=== PATIENT | male | born 1995 | race Caucasian/White ===

== ENCOUNTER 2019-11-07 11:41 | Emergency (ER) | payer SELFPAY | END 2019-11-07 16:00 | disposition home or self-care (01) | PROVIDERS: Emergency Provider Physician Assistant; Family Provider Physician Assistant Medical; Visit Provider Physician Assistant | DX: G44.1 Vascular headache, not elsewhere classified (principal); F17.210 Nicotine dependence, cigarettes, uncomplicated ==

== ENCOUNTER 2020-10-15 14:15 | Outpatient (CLI) | payer SELFPAY ==
--- NOTE | 2020-10-15 14:35 | XRR_ITS ---
PROCEDURE INFORMATION: Exam: XR Lumbosacral Spine, 2 or 3 Views Exam date and time: 10/15/2020 2:55 PM Age: 25 years old Clinical indication: Injury or trauma; Other: Moving a large rock; Blunt trauma (contusions or hematomas); Injury date: 10/10/20; Patient HX: C/O low back pain x 5 days after trying to move a large rock. TECHNIQUE: Imaging protocol: XR of the lumbosacral spine, 2 or 3 views. COMPARISON: No relevant prior studies available. FINDINGS: Bones/joints: There is mild scoliosis concave to the right. Intervertebral disc spaces are preserved. No fracture is identified. Soft tissues: Unremarkable. XR/XR lumbar spine 2-3V* [id number] IMPRESSION: Mild scoliosis. No fracture is identified.
== END 2020-10-15 14:16 | disposition home or self-care (01) ==
PROVIDERS: Visit Provider Emergency Medicine
DX: M41.86 Other forms of scoliosis, lumbar region (principal)
CPT/HCPCS: 72100

== ENCOUNTER 2021-02-22 01:43 | Emergency (ER) | payer SELFPAY ==
[2021-02-22 01:48] VITALS: BP 127/86; PULSE 104; RESP 16; TEMP 36.7; O2SAT 97; BMI 19.9
--- NOTE | 2021-02-22 01:57 | W.ED.OVERDOS ---
HPI - Overdose General: Chief Complaint: Overdose Stated Complaint: confusion Time Seen by Provider: 02/22/21 01:46 Source: patient, EMS and police Mode of arrival: EMS Limitations: no limitations History of Present Illness: HPI Narrative: 25-year-old male states that roughly 11:00 he took a lot of shrooms. He states that he was feeling overwhelmed and went, please officer and wanted to come to the hospital. He states to me that he is feeling extremely paranoid and thinks he took too many streams. He denies any suicidal homicidal thoughts. Patient has been cooperative here and not agitated at this time. He denies any worsening improving factors. He does have flight of ideas and is under the influence. Review of Systems Const: Denies: fever(s), chills, body aches or change in appetite Eyes: Denies: blurry vision or eye discomfort ENMT: Denies: throat pain or dental pain Card: Denies: chest pain Resp: Denies: dyspnea GI: Denies: abdominal pain, nausea, vomiting or diarrhea : Denies: dysuria Musc: Denies: neck pain or back pain Skin/Breast: Denies: rash Neuro: Denies: headache(s) Psych: Reports: difficulty concentrating; Denies: depression Mekhi/Lymph: Denies: easy bruising All/Imm: Denies: urticaria [facility] ED PFSH: Social History (Updated 10/09/20 @ 16:15 by Radha Cho LPN) Smoking and tobacco status: current every day smoker Physical Exam Const: COMMON NORMALS: no acute distress, patient oriented x3 and healthy appearing HENMT: COMMON NORMALS: normocephalic and atraumatic HEAD & SCALP: normocephalic and atraumatic Eye: COMMON NORMALS: Equal, round and reactive pupils present and EOMs intact bilaterally PUPIL: Yes Equal, round and reactive pupils present Neck/C-Spine: COMMON NORMALS: full ROM and supple Chest: COMMONS NORMALS: normal inspection of the chest and normal palpation of entire chest wall Resp: COMMON NORMALS: normal respiratory effort, No retractions, No use of accessory muscles and clear to auscultation bilaterally AUSCULTATION: clear to auscultation bilaterally Cardio: COMMON NORMALS: regular rate, regular rhythm and No murmurs present (Cardio) RATE: regular rate RHYTHM: regular rhythm GI: COMMON NORMALS: Normal to inspection, nondistended, normoactive bowel sounds present, Soft to palpation, non-tender and no masses PALPATION: Yes Soft to palpation Extremity: COMMON NORMALS: normal to inspection and full ROM Neuro: COMMON NORMALS: patient oriented x3, moves all extremities and no focal motor deficits Psych: COMMON NORMALS: mental status grossly normal and cooperative ATTITUDE: Yes bizarre ACTIVITY/MOTOR BEHAVIOR: Yes fidgeting MOOD & AFFECT: Yes elevated mood THOUGHT PROCESS: Tangential thought process present Skin: COMMON NORMALS: no rashes or lesions noted and no wounds GENERAL SKIN EXAM: no rashes or lesions noted Course Vital Signs: Vital signs: Vital Signs Temperature 98.1 F 02/22/21 01:48 Pulse Rate 104 H 02/22/21 01:48 Respiratory Rate 16 02/22/21 01:48 Blood Pressure 127/86 02/22/21 01:48 Pulse Oximetry 97 02/22/21 01:48 MDM - Overdose MDM Narrative: Medical decision making narrative: Patient presents here with drug abuse after taking mushrooms. He had an adverse reaction to the mushrooms. Patient is now awake and alert and back to normal and ambulatory. Patient's mother came in pick patient up and he is stable for discharge. He has no psychiatric complaints. He has been stable while here. Lab Data: Labs: Lab Results 02/22/21 02/22/21 Range/Units 02:05 02:05 WBC 15.2 H (4.0-10.0) 10^3/ uL RBC 4.69 (4.1-5.3) 10^6/u L Hgb 15.1 (11.7-16.6) g/dL Hct 44.9 (42.0-52.0) % MCV 95.7 H (80-94) fL MCH 32.2 (28.0-34.0) pg MCHC 33.6 (30.0-36.0) g/dL RDW 12.3 (12.1-15.1) % Plt Count 194 (130-400) 10^3/c mm MPV 9.5 (7.4-10.4) fL Neut % (Auto) 87.9 % Lymph % (Auto) 5.7 % [place] % (Auto) 5.5 % Eos % (Auto) 0.1 % Baso % (Auto) 0.3 % Neut # (Auto) 13.32 H (1.8-7.7) 10^3/u L Lymph # (Auto) 0.9 (0.8-4.8) 10^3/u L [place] # (Auto) 0.8 (0.2-0.9) 10^3/u L Eos # (Auto) 0.0 (0.0-0.8) 10^3/u L Baso # (Auto) 0.0 (0.0-0.1) 10^3/u L Nucleated RBC % (a uto) 0 % Nucleated RBCs # 0.0 /100WBC Sodium 136 (136-145) mmol/L Potassium 4.0 (3.5-5.1) mmol/L Chloride 102 (98-107) mmol/L Carbon Dioxide 24 (22-29) mmol/L Anion Gap 14.0 (5-19) BUN 15 (6-20) mg/dL Creatinine 0.9 (0.7-1.2) mg/dL GFR Calculation 101.2 (90-130) mL/min Glucose 119 H (65-115) mg/dL Calculated Osmolal ity 284 L (285-295) mOsm/k g Calcium 8.9 (8.5-10.5) mg/dL Total Bilirubin 0.3 (0.15-1.2) mg/dL AST 28 (0-40) U/L ALT 30 (0-41) U/L Alkaline Phosphata se 63 (40-130) IU/L Total Protein 7.3 (6.6-8.7) g/dL Albumin 4.7 (3.5-5.2) g/dL Globulin 2.6 (1.3-4.6) g/dL Salicylates 1.1 L (3-10) mg/dL Acetaminophen < 5.0 L (10-30) ug/mL Ethyl Alcohol < 10 (0-10) mg/dL Discharge Plan Discharge Patient Disposition: Home Clinical Impression: Drug abuse Condition: Stable Prescriptions: No Action prednisone 20 mg tablet 40 mg PO DAILY 5 Days Qty: 10 RF: 0 Discharge Orders: Discharge ED (Routine); Ordered 02/22/21 Ordered By: Crystal Silva Discharge Diet: Advance as tolerated Discharge Activity: Resume usual activity Patient Instructions: Polysubstance Abuse (ED) Coding Level of Care Code ED Editor Managing [employer]aper for Chg Fwd Exam Comprehensive
[2021-02-22] MEDS: LORazepam 2 mg/mL INJ 1 mL 4 MG IM (01:58)
[2021-02-22 02:09] LABS: Basophils % 0.3 %; Eosinophils % 0.1 %; Hematocrit 44.9 % (42.0-52.0); Hemoglobin 15.1 g/dL (11.7-16.6); Lymphocytes # 0.9 10^3/uL (0.8-4.8); Lymphocytes % 5.7 %; Mean Corpuscular HGB Conc 33.6 g/dL (30.0-36.0); Mean Corpuscular Hemoglobin 32.2 pg (28.0-34.0); Mean Corpuscular Volume 95.7 fL (80-94); Mean Platelet Volume 9.5 fL (7.4-10.4); Monocytes # 0.8 10^3/uL (0.2-0.9); Monocytes % 5.5 %; Neutrophils # 13.32 10^3/uL (1.8-7.7); Neutrophils % 87.9 %; Nucleated Red Blood Cells % 0 %; Platelet Count 194 10^3/cmm (130-400); Red Blood Count 4.69 10^6/uL (4.1-5.3); Red Cell Distribution Width 12.3 % (12.1-15.1); White Blood Count 15.2 10^3/uL (4.0-10.0)
[2021-02-22 02:26] LABS: Alanine Aminotransferase 30 U/L (0-41); Albumin Level 4.7 g/dL (3.5-5.2); Alkaline Phosphatase 63 IU/L (40-130); Aspartate Amino Transferase 28 U/L (0-40); Blood Urea Nitrogen 15 mg/dL (6-20); Calcium 8.9 mg/dL (8.5-10.5); Carbon Dioxide 24 mmol/L (22-29); Chloride 102 mmol/L (98-107); Creatinine Clr Calc Pharmacy 116.6865; Globulin 2.6 g/dL (1.3-4.6); Glomerular Filtration Rate 101.2 mL/min (90-130); Glucose 119 mg/dL (65-115); Osmolality Calculated 284 mOsm/kg (285-295); Salicylate 1.1 mg/dL (3-10); Sodium 136 mmol/L (136-145); Total Bilirubin 0.3 mg/dL (0.15-1.2); Total Protein 7.3 g/dL (6.6-8.7)
[2021-02-22 02:35] LABS: Acetaminophen < 5.0 ug/mL (10-30); Alcohol Level < 10 mg/dL (0-10)
[2021-02-22 05:12] VITALS: PULSE 86; RESP 16; O2SAT 96
== END 2021-02-22 05:13 | disposition home or self-care (01) ==
PROVIDERS: Emergency Provider Emergency Medicine
DX: F19.10 Other psychoactive substance abuse, uncomplicated (principal); F17.210 Nicotine dependence, cigarettes, uncomplicated
CPT/HCPCS: 80053; 80307; 85025; 96372; 99283; J2060

== ENCOUNTER 2021-04-05 20:29 | Emergency (ER) | payer SELFPAY ==
[2021-04-05 20:36] VITALS: BP 121/72; PULSE 90; RESP 16; TEMP 36.8; O2SAT 98; BMI 21.1
[2021-04-05] MEDS: lidocaine 1% INJ 20 mL INTRADERMA (20:48)
[2021-04-05 21:05] LABS: Basophils % 0.5 %; Eosinophils # 0.3 10^3/uL (0.0-0.8); Eosinophils % 4.1 %; Hemoglobin 15.1 g/dL (11.7-16.6); Lymphocytes # 2.6 10^3/uL (0.8-4.8); Lymphocytes % 32.6 %; Mean Corpuscular HGB Conc 34.3 g/dL (30.0-36.0); Mean Corpuscular Hemoglobin 32.2 pg (28.0-34.0); Mean Corpuscular Volume 93.8 fL (80-94); Mean Platelet Volume 9.4 fL (7.4-10.4); Monocytes # 0.8 10^3/uL (0.2-0.9); Neutrophils # 4.25 10^3/uL (1.8-7.7); Neutrophils % 52.6 %; Nucleated Red Blood Cells % 0 %; Platelet Count 212 10^3/cmm (130-400); Red Blood Count 4.69 10^6/uL (4.1-5.3); Red Cell Distribution Width 12.1 % (12.1-15.1); White Blood Count 8.1 10^3/uL (4.0-10.0)
[2021-04-05] MEDS: vancomycin 1,000 MG in sodium chloride 0.9% 250 ML 250 MG IV (21:16)
[2021-04-05 21:17] LABS: Alanine Aminotransferase 12 U/L (0-41); Albumin Level 4.4 g/dL (3.5-5.2); Alkaline Phosphatase 74 IU/L (40-130); Anion Gap 16.1 (5-19); Aspartate Amino Transferase 21 U/L (0-40); Blood Urea Nitrogen 15 mg/dL (6-20); Calcium 8.9 mg/dL (8.5-10.5); Carbon Dioxide 25 mmol/L (22-29); Chloride 100 mmol/L (98-107); Globulin 2.7 g/dL (1.3-4.6); Glomerular Filtration Rate 89.6 mL/min (90-130); Glucose 89 mg/dL (65-115); Osmolality Calculated 284 mOsm/kg (285-295); Potassium 4.1 mmol/L (3.5-5.1); Sodium 137 mmol/L (136-145); Total Bilirubin 0.3 mg/dL (0.15-1.2); Total Protein 7.1 g/dL (6.6-8.7)
[2021-04-05 21:18] VITALS: BP 121/72; PULSE 78; RESP 16; O2SAT 97
[2021-04-05 21:18] LABS: Lactate (Lactic Acid level) 0.7 mmol/L (0.5-2.2)
--- NOTE | 2021-04-05 22:00 | PC.NURSE ---
patient c/o itchy to chest and back, rash noted to chest and back, denied any trouble breathing. no acute distress noted. provider notified. iv fluid stopped per
[2021-04-05 22:09] VITALS: BP 115/64; PULSE 79; RESP 16; O2SAT 98
[2021-04-05] MEDS: diphenhydrAMINE 50 mg/mL SDV 1mL IVP (22:11)
[2021-04-05] MEDS: clindamycin 150 mg Capsule 300 MG PO (22:32)
[2021-04-05 23:02] VITALS: BP 115/64; PULSE 88; RESP 16; O2SAT 96
--- NOTE | 2021-04-05 23:30 | W.ED.SKABFB ---
HPI - Skin/Abscess/Foreign Bdy General: Chief complaint: Skin/Abscess/Foreign Body Stated complaint: poss infection upper r arm Time Seen by Provider: 04/05/21 20:35 Source: patient Mode of arrival: ambulatory Limitations: no limitations History of Present Illness: HPI narrative: Pt presents with an open draining abscess to left forearm. Pt states he was placed on bactrim 2 days ago but it has come to a head and open and draining currently. Pt denies any fever but states he feels nauseated. Pt states he has been putting warm compresses on arm to bring it to a head. MD complaint: rash Onset (ago): day(s) (4) Associated symptoms: Reports nausea; Deny chills, fever(s) or vomiting Review of Systems Const: Denies: fever(s), chills, body aches, change in appetite, change in weight, fatigue, malaise or diaphoresis Eyes: Denies: change in vision, blurry vision, blind spots, photophobia, eye discomfort, eye discharge, eye redness, floaters or seeing flashes ENMT: Denies: throat pain, uvular edema, enlarged tonsils, odynophagia, hoarseness, mouth pain, swelling of lips/tongue, oral sores, bleeding gums, dental pain, dry mouth, ear or mastoid pain, ear discharge, change in hearing, tinnitus, disequilibrium, nasal discharge, nasal congestion, post nasal drip or sinus pain Card: Denies: chest pain, palpitations, irregular heart rhythm, edema, swelling of feet/ankles, lightheadedness, syncope, pre-syncope, dyspnea on exertion, orthopnea, leg pain with exertion or acrocyanosis Resp: Denies: dyspnea, productive cough, non-productive cough, wheezing, stridor, pain on inspiration, change in phlegm color, hemoptysis or chest congestion GI: Reports: nausea; Denies: abdominal pain, vomiting, hematemesis, dysphagia, diarrhea, constipation, GI cramping, change in bowel habits or rectal pain : Denies: flank pain, dysuria, urinary frequency, urinary urgency, urinary hesitancy or hematuria Musc: Denies: neck pain, back pain, extremity pain, extremity swelling, joint pain, joint swelling, joint redness, joint warmth or deformity Skin/Breast: Reports: rash; Denies: pruritus, erythema, sores, new lesions, changes in skin color or dry skin Neuro: Denies: headache(s), numbness in extremities, weakness in extremities, sensory changes, lack of coordination, difficulty walking, frequent falls, dizziness, vertigo, confusion, behavioral changes, Slurred speech present, difficulty communicating thoughts or seizure-like activity Psych: Denies: anxiety, depression, suicidal ideation or homicidal ideation Endo: Denies: polyuria, polydipsia, tired all the time, cold intolerance, excessive sweating, flushing, hot flashes or heat intolerance Mekhi/Lymph: Denies: easy bruising, easy bleeding, petechiae, purpura, enlarged lymph nodes or tender lymph nodes All/Imm: Denies: urticaria, throat swelling, tongue swelling, facial swelling, acute wheezing or itchy eyes PFSH ED PFSH: Social History (Updated 04/04/21 @ 15:00 by Khanh Gonzalez LPN) Smoking and tobacco status: current every day smoker cigarettes Quit status (tobacco): not considering quitting Second hand smoke exposure: Yes Alcohol intake: never Desire information about alcohol rehabilitation?: No Desire information about substance/drug rehabilitation?: No Physical Exam Const: COMMON NORMALS: no acute distress, patient oriented x3, healthy appearing, alert and well nourished GENERAL APPEARANCE: cooperative, comfortable, well kempt and well developed; not ill appearing ORIENTATION/CONSCIOUSNESS: Yes awake, Yes oriented to person, Yes oriented to place and Yes oriented to time HENMT: COMMON NORMALS: normocephalic, atraumatic, hearing grossly normal bilaterally, external ears normal, EAC's normal, TM's normal bilaterally, Normal external nose present, Normal nasal mucous membranes and turbinates present and moist oral mucous membranes HEAD & SCALP: normal to inspection, normocephalic and atraumatic FACE & SINUS: normal facial exam, sinuses nontender and face symmetric NOSE: Normal external nose present, Normal nares present, Normal nasal mucous membranes and turbinates present, No nasal discharge present and Abnormal external nose present EXTERNAL EAR: Yes external ears normal and Yes mastoids normal EXTERNAL AUDITORY CANAL: EAC's normal TYMPANIC MEMBRANE: TM's normal bilaterally MOUTH: Normal oral and palatal mucosa present, lip normal, tongue normal and Normal salivary glands and ducts present THROAT: no uvular edema Eye: COMMON NORMALS: Equal, round and reactive pupils present, EOMs intact bilaterally, conjunctivae normal, no scleral icterus and no papilledema GENERAL EYE: appearance normal, both eyes and all related structures EYELID: eyelids normal CONJUNCTIVA: Yes conjunctivae normal SCLERA: sclerae normal CORNEA: Yes corneas normal PUPIL: Yes Equal, round and reactive pupils present DIRECT OPHTHALMOSCOPY: Yes no papilledema Neck/C-Spine: COMMON NORMALS: full ROM, no lymphadenopathy, supple, no meningeal signs, no JVD and Thyroid normal GENERAL: Yes normal visual inspection and Yes trachea midline THYROID: Thyroid normal CERVICAL SPINE: Yes cervical ROM normal Lymph: LYMPHATIC: no lymphadenopathy noted and no lymphedema noted Chest: COMMONS NORMALS: normal inspection of the chest and normal palpation of entire chest wall Resp: COMMON NORMALS: normal respiratory effort, No retractions, No use of accessory muscles and clear to auscultation bilaterally EFFORT & INSPECTION: Yes able to speak in complete sentences and Yes symmetric chest movement AUSCULTATION: clear to auscultation bilaterally Cardio: COMMON NORMALS: no JVD, regular rate and regular rhythm RATE: regular rate RHYTHM: regular rhythm GI: COMMON NORMALS: Normal to inspection, nondistended, normoactive bowel sounds present, Soft to palpation, non-tender, No hepatosplenomegaly present, no masses and no bruits INSPECTION: Yes normal to inspection AUSCULTATION: Yes normoactive bowel sounds PALPATION: Yes Soft to palpation and Yes No hepatosplenomegaly present RECTAL EXAM: Yes deferred : COMMON NORMALS: Yes no CVA tenderness BLADDER/KIDNEY EXAM: Yes no CVA tenderness Back/Pelvis: COMMON NORMALS: no CVA tenderness Extremity: COMMON NORMALS: normal to inspection, full ROM and capillary refill normal GENERAL: Yes normal exam except as noted Neuro: COMMON NORMALS: patient oriented x3, CN's II-XII intact bilaterally, moves all extremities, no focal motor deficits, no sensory deficits noted, deep tendon reflexes 2+ bilaterally and gait normal SENSORIUM/ORIENTATION: Yes alert, Yes oriented to person, Yes oriented to place and Yes oriented to time MENINGEAL SIGNS: Yes no meningeal signs CRANIAL NERVES: Yes CN normal except as noted SPEECH: speech normal GAIT: Yes Normal gait present SENSORY EXAM: Yes extremities Psych: COMMON NORMALS: mental status grossly normal, Normal thought process present, cooperative, normal affect, speech normal, activity/motor behavior normal, denies hallucinations, denies homicidal ideation and denies suicidal ideation APPEARANCE: Yes grossly normal and Yes well kempt ATTITUDE: Yes calm ACTIVITY/MOTOR BEHAVIOR: Yes appropriate eye contact SPEECH: Yes normal speech THOUGHT PROCESS: Normal thought process present THOUGHT CONTENT: Yes Normal thought content present ATTENTION/CONCENTRATION: Yes attention grossly intact MEMORY/COGNITION: Yes memory grossly intact INSIGHT: Good insight present (Psych) JUDGEMENT: Good judgement present (Psych) Skin: COMMON NORMALS: turgor normal, no jaundice, no petechiae and no mottling NARRATIVE SKIN EXAM: Pt has a 2cm cirular open draining abscess to the left brachial area. Draining purulent drainage GENERAL SKIN EXAM: turgor normal Procedures Abscess I/D Site: upper extremity Side (if applicable): left Local Anesthetic: lidocaine 1% Amount of anesthesia used (mL): 4 Technique: incised with #11 blade Amount of fluid expressed (mL): 5 Irrigation: Yes Packing used?: none Course Vital Signs: Vital signs: Vital Signs Temperature 98.2 F 04/05/21 20:36 Pulse Rate 88 04/05/21 23:02 Respiratory Rate 16 04/05/21 23:02 Blood Pressure 115/64 04/05/21 23:02 Pulse Oximetry 96 04/05/21 23:02 MDM - Skin/Abscess/Foreign Bdy MDM Narrative: Medical decision making narrative: Pts labs do not reveal any concerning findings, I did send wound and blood cultures prior to antibioitcs. Pt is well appearing non toxic and in no acute distress. I started patient on vanc here in ER and he states he felt itchy. Van stopped and benadryl given patient had clinical resolution of itching. Pt was given CLeocin for trial and had no issues with this. 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 I will send patient home with CELocin and have him follow up in 24-48 hours for wound recheck Please see procedure note for Incision and drainage Lab Data: Labs: Lab Results 04/05/21 04/05/21 04/05/21 Range/Units 20:50 20:50 20:50 WBC 8.1 (4.0-10.0) 10^3/ uL RBC 4.69 (4.1-5.3) 10^6/u L Hgb 15.1 (11.7-16.6) g/dL Hct 44.0 (42.0-52.0) % MCV 93.8 (80-94) fL MCH 32.2 (28.0-34.0) pg MCHC 34.3 (30.0-36.0) g/dL RDW 12.1 (12.1-15.1) % Plt Count 212 (130-400) 10^3/c mm MPV 9.4 (7.4-10.4) fL Neut % (Auto) 52.6 % Lymph % (Auto) 32.6 % [place] % (Auto) 10.0 % Eos % (Auto) 4.1 % Baso % (Auto) 0.5 % Neut # (Auto) 4.25 (1.8-7.7) 10^3/u L Lymph # (Auto) 2.6 (0.8-4.8) 10^3/u L [place] # (Auto) 0.8 (0.2-0.9) 10^3/u L Eos # (Auto) 0.3 (0.0-0.8) 10^3/u L Baso # (Auto) 0.0 (0.0-0.1) 10^3/u L Nucleated RBC % (a uto) 0 % Nucleated RBCs # 0.0 /100WBC Sodium 137 (136-145) mmol/L Potassium 4.1 (3.5-5.1) mmol/L Chloride 100 (98-107) mmol/L Carbon Dioxide 25 (22-29) mmol/L Anion Gap 16.1 (5-19) BUN 15 (6-20) mg/dL Creatinine 1.0 (0.7-1.2) mg/dL GFR Calculation 89.6 L (90-130) mL/min Glucose 89 (65-115) mg/dL Calculated Osmolal ity 284 L (285-295) mOsm/k g Lactate 0.7 (0.5-2.2) mmol/L Calcium 8.9 (8.5-10.5) mg/dL Total Bilirubin 0.3 (0.15-1.2) mg/dL AST 21 (0-40) U/L ALT 12 (0-41) U/L Alkaline Phosphata se 74 (40-130) IU/L Total Protein 7.1 (6.6-8.7) g/dL Albumin 4.4 (3.5-5.2) g/dL Globulin 2.7 (1.3-4.6) g/dL Discharge Plan Discharge Patient Disposition: Home Clinical Impression: Abscess of skin or subcutaneous tissue Condition: Stable Prescriptions: New Cleocin HCl 300 mg capsule 300 mg PO Q12H 7 Days Qty: 14 RF: 0 No Action sulfamethoxazole-trimethoprim [Bactrim DS] 800-160 mg tablet 1 tab PO BID 14 Days Qty: 28 RF: 0 Discharge Orders: Discharge ED (Routine); Ordered 04/05/21 Ordered By: Britany Briceño Discharge Diet: Advance as tolerated Discharge Activity: Resume usual activity Patient Instructions: Opioid Safety Activity Restrictions/Additional Instructions: Please take medications as prescribed Please keep area clean and dry Please return to ER in 48 for wound recheck or sooner if symptoms worsen Coding Level of Care Code ED Social Service Manager for Юлия Cartagena
== END 2021-04-05 23:04 | disposition home or self-care (01) ==
PROVIDERS: Emergency Provider Registered Nurse
DX: L02.414 Cutaneous abscess of left upper limb (principal); F17.210 Nicotine dependence, cigarettes, uncomplicated
CPT/HCPCS: 10060; 36415; 80053; 83605; 85025; 87040; 87070; 87077; 87186; 96365; 96375; 99284; J1200; J3370; J7050

== ENCOUNTER 2022-04-24 08:33 | Emergency (ER) | payer MEDICAID, SELFPAY ==
[2022-04-24 09:16] VITALS: BP 120/75; PULSE 81; RESP 12; TEMP 36.4; O2SAT 98; BMI 22.6
--- NOTE | 2022-04-24 10:59 | W.ED.SKABFB ---
HPI - Skin/Abscess/Foreign Bdy General: Chief complaint: Skin/Abscess/Foreign Body Stated complaint: sores on L arm Time Seen by Provider: 04/24/22 10:47 PFSH ED PFSH: Social History (Updated 04/04/21 @ 15:00 by Khanh Gonzalez LPN) Smoking and tobacco status: current every day smoker cigarettes Quit status (tobacco): not considering quitting Second hand smoke exposure: Yes Alcohol intake: never Desire information about alcohol rehabilitation?: No Desire information about substance/drug rehabilitation?: No Course Vital Signs: Vital signs: Vital Signs Temperature 97.6 F 04/24/22 09:16 Pulse Rate 81 04/24/22 09:16 Respiratory Rate 12 04/24/22 09:16 Blood Pressure 120/75 04/24/22 09:16 Pulse Oximetry 98 04/24/22 09:16 Discharge Plan Discharge Condition: Stable Prescriptions: No Action sulfamethoxazole-trimethoprim [Bactrim DS] 800-160 mg tablet 1 tab PO BID 14 Days Qty: 28 0RF Rx Instructions: for 14 days Coding Level of Care Code ED Hearing Aide Technician for Юлия Cartagena
--- NOTE | 2022-04-24 11:03 | ED_ITS ---
HPI - General Adult General: Chief complaint: Skin/Abscess/Foreign Body Stated complaint: sores on L arm Time Seen by Provider: 04/24/22 10:47 History of Present Illness: Patient is a 26-year-old male with a history of prior MRSA abscess/cellulitis who presents the emergency room with concerns of new abscess and cellulitis. Patient tells me that 2 weeks ago he noted that he had an area of erythema and pain above his right ankle. Since then, patient has noted on his left hand. Patient denies any history IV drug use, diabetes, immunosuppression, transplant, HIV. Patient also denies any fever or chills. Patient thinks that he may have MS or a request for antibiotics at this time. Last time patient was found to have MRSA infection was on 04/05/2021 for which she was treated with 14-day course of Bactrim. Patient has no allergic reaction to Bactrim. Onset: 2 weeks ago Duration:2 weeks Location:home Severity: mild Associated symptoms: Deny chest pain, dyspnea, nausea, palpitations or vomiting Review of Systems Const: Denies: fever(s) or chills Eyes: Denies: change in vision ENMT: Denies: mouth pain Card: Denies: chest pain or palpitations Resp: Denies: dyspnea or non-productive cough GI: Denies: abdominal pain, nausea, vomiting or diarrhea : Denies: dysuria Musc: Denies: extremity pain Skin/Breast: Reports: new lesions (+R leg ulcerated lesion, +L arm ulcerated lesion with erythema) Neuro: Denies: weakness in extremities Psych: Reports: other (Normal mood) Mekhi/Lymph: Denies: easy bruising [facility] ED PFSH: Medical History MRSA cellulitis Social History Smoking and tobacco status: current every day smoker cigarettes Quit status (tobacco): not considering quitting Second hand smoke exposure: Yes Alcohol intake: never Desire information about alcohol rehabilitation?: No Desire information about substance/drug rehabilitation?: No Physical Exam Const: COMMON NORMALS: alert HENMT: COMMON NORMALS: atraumatic HEAD & SCALP: atraumatic MOUTH: moist mucous membranes not abnormal Eye: COMMON NORMALS: EOMs intact bilaterally and conjunctivae normal CONJUNCTIVA: Yes conjunctivae normal Neck/C-Spine: COMMON NORMALS: full ROM and supple Resp: COMMON NORMALS: normal respiratory effort and clear to auscultation bilaterally AUSCULTATION: clear to auscultation bilaterally Cardio: COMMON NORMALS: regular rate RATE: regular rate GI: COMMON NORMALS: Soft to palpation and non-tender PALPATION: Yes Soft to palpation Extremity: COMMON NORMALS: full ROM Neuro: SENSORIUM/ORIENTATION: Yes alert MOTOR EXAM: No Abnormal motor strength present and Other motor observations present (no focal motor deficits) Psych: COMMON NORMALS: speech normal SPEECH: Yes normal speech MOOD & AFFECT: Yes euthymic mood Skin: NARRATIVE SKIN EXAM: + R ulcerated lesion with excoriation above the right ankle with mild erythema w/ no palpable fluctuance +L forearm ulcerated lesion with excoriaton on the volar aspect with mild erythema without any palpable fluctuance Course Vital Signs: Vital signs: Vital Signs Temperature 97.6 F 04/24/22 09:16 Pulse Rate 81 04/24/22 09:16 Respiratory Rate 12 04/24/22 09:16 Blood Pressure 120/75 04/24/22 09:16 Pulse Oximetry 98 04/24/22 09:16 MDM - General Adult Medical Decision Making 18-year-old male with history of MRSA abscess/cellulitis presenting to the emergency room for evaluation of new lesions x2 weeks. On exam, patient has ulcerated excoriated lesion on the right lower extremity and left lower extremity no visible tracking erythema. Patient is afebrile hemodynamically stable. Given the fact that patient has been going on for 2 weeks and patient at the present time does not exhibit any signs of rapid spread, this is unlikely to be necrotizing soft tissue infection. Rx bactrim/cephalexin for MRSA infection Disposition: Discharge. Patient counseled regarding diagnostic impression, treatment plan. Patient given ED strict return precautions to return for continuation, worsening, or development of new symptoms. Instructed to f/u w/ PCP regarding symptoms today. Patient verbalized understanding. Discharge Plan Discharge Patient Disposition: Home Clinical Impression: Cellulitis Condition: Stable Prescriptions: New Bactrim DS 800-160 mg tablet 1 tab PO BID 14 Days Qty: 28 0RF cephalexin 500 mg capsule 500 mg PO BID 14 Days Qty: 28 0RF No Action sulfamethoxazole-trimethoprim [Bactrim DS] 800-160 mg tablet 1 tab PO BID 14 Days Qty: 28 0RF Rx Instructions: for 14 days Discharge Orders: Discharge ED (Routine); Ordered 04/24/22 Ordered By: Bradley Wooten Discharge Diet: Advance as tolerated Discharge Activity: Increase activity as tolerated Patient Instructions: Cellulitis (ED) Activity Restrictions/Additional Instructions: Come back to the emergency room if the antibiotics are not working, if you have any fever or chills, worsening redness, or any new or concerning complaints. Please take your antibiotics as instructed. Watch out for signs of skin changes/redness, mouth redeness or swelling, nausea/vomiting, diarrhea, blood in the urine or any new or concering complaints. Coding Level of Care Code ED Registered Nurse Surgical Services for Юлия Cartagena
== END 2022-04-24 11:18 | disposition home or self-care (01) ==
PROVIDERS: Emergency Provider Emergency Medicine
DX: L03.115 Cellulitis of right lower limb (principal); L03.114 Cellulitis of left upper limb; B95.62 Methicillin resistant Staphylococcus aureus infection as the cause of diseases classified elsewhere; F17.210 Nicotine dependence, cigarettes, uncomplicated
CPT/HCPCS: 99283

== ENCOUNTER 2022-04-26 00:33 | Emergency (ER) | payer MEDICAID, SELFPAY ==
[2022-04-26 00:52] VITALS: BP 111/56; PULSE 83; RESP 18; TEMP 36.6; O2SAT 97; BMI 20.9
--- NOTE | 2022-04-26 01:01 | W.ED.GENADLT ---
HPI - General Adult General: Chief complaint: General Medical Stated complaint: sores on L arm Time Seen by Provider: 04/26/22 01:01 Source: patient Mode of arrival: ambulatory Limitations: no limitations History of Present Illness: Patient is a 27-year-old male who presents to ED today with a complaint of multiple sores to his bilateral upper extremities and one near his right ankle. Patient states he has had sores developing for several weeks now. He states they will pop and he will express a purulent drainage and then lesion scabs over and the cycle repeats. Patient was seen in our facility recently and given antibiotics for Keflex and Bactrim. He states he will not be able to fill these medications and till Wednesday due to financial hardship. Patient states he does have a history of MRSA. Onset (ago): week(s) Location: upper extremity Severity: mild Relieving factors: none Exacerbating factors: none Associated symptoms: Deny chest pain, dyspnea, headache(s) or malaise Treatments prior to arrival: none Review of Systems Const: Denies: fever(s), chills, body aches, fatigue or malaise Card: Denies: chest pain Resp: Denies: dyspnea GI: Denies: abdominal pain Musc: Denies: neck pain, back pain, extremity pain, extremity swelling, joint pain, joint swelling, joint redness, joint warmth, joint stiffness, limited range of motion, muscle cramps or muscle weakness Skin/Breast: Reports: new lesions Neuro: Denies: headache(s), numbness in extremities, weakness in extremities or sensory changes [facility] ED PFSH: Medical History MRSA cellulitis Social History Smoking and tobacco status: current every day smoker cigarettes Quit status (tobacco): not considering quitting Second hand smoke exposure: Yes Alcohol intake: never Desire information about alcohol rehabilitation?: No Desire information about substance/drug rehabilitation?: No Physical Exam Const: COMMON NORMALS: no acute distress, patient oriented x3, no limitations and alert GENERAL APPEARANCE: cooperative ORIENTATION/CONSCIOUSNESS: Yes awake, Yes oriented to person, Yes oriented to place and Yes oriented to time HENMT: COMMON NORMALS: normocephalic and atraumatic HEAD & SCALP: normal to inspection, normocephalic and atraumatic Neck/C-Spine: COMMON NORMALS: full ROM, no lymphadenopathy and no meningeal signs Resp: COMMON NORMALS: normal respiratory effort Cardio: COMMON NORMALS: regular rate and regular rhythm RATE: regular rate RHYTHM: regular rhythm Extremity: COMMON NORMALS: normal to inspection and full ROM GENERAL: Yes normal exam except as noted Neuro: KAILEE COMA SCALE: document GCS findings Kailee coma scale eye opening: Spontaneous Kailee coma scale verbal response: Orientated Kailee coma scale motor response: Obey commands [place] coma scale total score: 15 COMMON NORMALS: patient oriented x3, moves all extremities, no focal motor deficits and no sensory deficits noted SENSORIUM/ORIENTATION: Yes alert, Yes oriented to person, Yes oriented to place and Yes oriented to time MENINGEAL SIGNS: Yes no meningeal signs Skin: NARRATIVE SKIN EXAM: Patient has multiple picked scabbed sores to his bilateral distal upper extremities mainly to the dorsal aspects of his hands; there are no lesions affecting the finger webbings; he has similar picked lesion to lateral R ankle; lesions look suspicious for staph abscesses Course Vital Signs: Vital signs: Vital Signs Temperature 97.9 F 04/26/22 00:52 Pulse Rate 83 04/26/22 00:52 Respiratory Rate 18 04/26/22 00:52 Blood Pressure 111/56 04/26/22 00:52 Pulse Oximetry 97 04/26/22 00:52 [facility] - General Adult Medical Decision Making Patient states he was given prescriptions for Bactrim and Keflex at his last ED visit. He states he will be able to fill these until Wednesday when he gets paid. Patient will be given a Bactrim here and discharged with 2 tablets that he can take for tomorrow which should get him by until Wednesday when he can get his prescriptions filled. Recommend follow-up with PCP in 3 to 5 days if lesions do not seem to be improving. Return to ED precautions given. Discharge Plan Discharge Patient Disposition: Home Clinical Impression: Abscess of multiple sites Condition: Stable Prescriptions: No Action sulfamethoxazole-trimethoprim [Bactrim DS] 800-160 mg tablet 1 tab PO BID 14 Days Qty: 28 0RF Rx Instructions: for 14 days Bactrim DS 800-160 mg tablet 1 tab PO BID 14 Days Qty: 28 0RF cephalexin 500 mg capsule 500 mg PO BID 14 Days Qty: 28 0RF Discharge Orders: Discharge ED (Routine); Ordered 04/26/22 Ordered By: Daisha Philip Coding Level of Care Code ED Physician Interventional Cardiologist for Юлия Cartagena
--- NOTE | 2022-04-26 02:28 | PC.NURSE ---
0205- patient no in waiting room for antibiotic administration. number called and person answering will try to attempt to patient.
== END 2022-04-26 03:27 | disposition home or self-care (01) ==
PROVIDERS: Emergency Provider Physician Assistant
DX: L02.512 Cutaneous abscess of left hand (principal); L02.511 Cutaneous abscess of right hand
CPT/HCPCS: 99283

== ENCOUNTER 2023-06-11 22:26 | Emergency (ER) | payer MEDICAID, SELFPAY ==
--- NOTE | 2023-06-11 22:29 | USR_ITS ---
PROCEDURE INFORMATION: Exam: US Scrotum Exam date and time: 06/11/2023 11:15 PM Age: 28 years old Clinical indication: Scrotum pain; Additional info: Testicle pain TECHNIQUE: Imaging protocol: Real-time ultrasound of the scrotum and contents with color Doppler and image documentation. COMPARISON: No relevant prior studies available. FINDINGS: Right testicle: The right testicle measures 4.6 cm x 1.9 cm x 2.4 cm. No mass. No torsion. Normal vascular flow. A few right sub 3 mm varicosities are noted. Very small right hydrocele. Left testicle: The left testicle measures 3.7 cm x 1.6 cm x 2.3 cm. No mass. No torsion. Normal vascular flow. Varicosities measuring greater than 3 mm in diameter demonstrate increased Doppler flow with Valsalva maneuver. No left hydrocele. Epididymides: Normal. Scrotum/soft tissues: Normal. US/US scrotum 43120 IMPRESSION: 1. Left varicocele. 2. Very small right hydrocele.
[2023-06-11 22:39] VITALS: BP 116/70; PULSE 116; RESP 20; TEMP 36.7; O2SAT 97; BMI 20.3
--- NOTE | 2023-06-11 22:51 | W.ED.MALEGU ---
HPI - Male Genitourinary General: Chief complaint: Urogenital-Male Stated complaint: swelling and pain in testicals Time Seen by Provider: 06/11/23 22:28 Source: patient Mode of arrival: ambulatory Limitations: no limitations History of Present Illness: 28-year-old male states that he is noticing mass to his left testicle been there for 5 to 6 days. States he had some slight pain but is very minimal in nature denies any dysuria denies any penile discharge. Denies any worsening proving factors. Associated symptoms: Deny nausea or vomiting Review of Systems Const: Denies: fever(s) or chills ENMT: Denies: throat pain or dental pain Card: Denies: chest pain Resp: Denies: dyspnea GI: Denies: abdominal pain, nausea or vomiting : Reports: testicular mass Musc: Denies: neck pain or back pain Skin/Breast: Denies: rash Neuro: Denies: headache(s) PFSH ED PFSH: Medical History MRSA cellulitis Social History Smoking and tobacco status: current every day smoker cigarettes Quit status (tobacco): not considering quitting Second hand smoke exposure: Yes Alcohol intake: never Desire information about alcohol rehabilitation?: No Substance/Drug Use: never Desire information about substance/drug rehabilitation?: No Physical Exam Const: COMMON NORMALS: no acute distress, patient oriented x3 and healthy appearing HENMT: COMMON NORMALS: normocephalic and atraumatic HEAD & SCALP: normocephalic and atraumatic Eye: COMMON NORMALS: conjunctivae normal CONJUNCTIVA: Yes conjunctivae normal Neck/C-Spine: COMMON NORMALS: full ROM and supple Chest: COMMONS NORMALS: normal inspection of the chest Resp: COMMON NORMALS: normal respiratory effort Cardio: COMMON NORMALS: regular rate, regular rhythm and No murmurs present (Cardio) RATE: regular rate RHYTHM: regular rhythm GI: INSPECTION: Yes normal to inspection : OTHER: Mass palpated left testicle could be a varicocele we will get ultrasound Extremity: COMMON NORMALS: normal to inspection and full ROM Neuro: COMMON NORMALS: patient oriented x3, moves all extremities and no focal motor deficits Psych: COMMON NORMALS: mental status grossly normal, Normal thought process present and cooperative THOUGHT PROCESS: Normal thought process present Skin: COMMON NORMALS: no rashes or lesions noted and no wounds GENERAL SKIN EXAM: no rashes or lesions noted Course Vital Signs: Vital signs: Vital Signs Temperature 98.1 F 06/11/23 22:39 Pulse Rate 116 H 06/11/23 22:39 Respiratory Rate 20 H 06/11/23 22:39 Blood Pressure 116/70 06/11/23 22:39 Pulse Oximetry 97 06/11/23 22:39 Oxygen Delivery Me thod Room Air 06/11/23 22:39 MDM - Male Medical Decision Making Patient presents with left testicle varicocele ultrasound shows no other abnormalities. He is stable for discharge he is to follow-up with urology he is return if worsening Medical Records I reviewed the patient's medical records. Lab Data I reviewed the patient's lab results. Radiology Impressions Scrotum Ultrasound 06/11/23 22:29 IMPRESSION: 1. Left varicocele. 2. Very small right hydrocele. Discharge Plan Discharge Patient Disposition: Home Clinical Impression: Left varicocele Condition: Stable Prescriptions: No Action sulfamethoxazole-trimethoprim [Bactrim DS] 800-160 mg tablet 1 tab PO BID 14 Days Qty: 28 0RF Rx Instructions: for 14 days Discharge Orders: Discharge ED (Routine); Ordered 06/11/23 Ordered By: Crystal Silva Discharge Diet: Advance as tolerated Discharge Activity: Resume usual activity Patient Instructions: Varicocele Coding Level of Care Code ED Clinical Unit Coordinator for Юлия Cartagena
[2023-06-12 00:11] VITALS: PULSE 96; RESP 16; O2SAT 96
--- NOTE | 2023-06-14 13:26 | DCPLANNER ---
ops manager had message to schedule a follow up appointment for patient with urology. ops manager called patient to confirm where patient wanted the referral sent due to not having a urologist at [facility]. ops manager called patient at phone number [phone] - unable to speak with patient at this time, a voicemail was left for patient to return showcase trimmer phone call.
--- NOTE | 2023-06-14 13:28 | DCPLANNER ---
house manager called patient due to no primary care physician - no answer at this time.
== END 2023-06-12 00:11 | disposition home or self-care (01) ==
PROVIDERS: Emergency Provider Emergency Medicine
DX: I86.1 Scrotal varices (principal); F17.210 Nicotine dependence, cigarettes, uncomplicated
CPT/HCPCS: 76870; 99283